=== PATIENT | female | born 1935 | race Caucasian/White ===

== ENCOUNTER 2017-08-18 14:13 | Outpatient (CLI) | payer MEDICARE | END 2017-08-18 14:14 | disposition home or self-care (01) | LOC: BICMAMMO 14:13 | PROVIDERS: ATTEND Internal Medicine Rheumatology | DX: Z13.820 Encounter for screening for osteoporosis (principal); M81.0 Age-related osteoporosis without current pathological fracture | CPT/HCPCS: 77080 ==

== ENCOUNTER 2018-02-03 18:07 | Emergency (ER) | payer MEDICARE ==
--- NOTE | 2018-02-03 19:25 | CT ---
NONCONTRAST HEAD CT: 02/03/18 HISTORY: Pain. Trip and fall. Injury. COMPARISON: None. FINDINGS: No parenchymal hemorrhage. No extra-axial hematoma. No midline shift. Basilar cisterns are patent. Ag e appropriate atrophy. Cortical abdullahi-white matter differentiation is preserved. Ventricles and sulci are patent and symmetric. Calvarium is intact. Adequate aeration of the sinuses and mastoid air cells. IMPRESSION: No intracranial posttraumatic sequela. POS: [facility]
--- NOTE | 2018-02-03 21:45 | RAD ---
LEFT KNEE FOUR VIEWS: 02/03/18 HISTORY: 82-year-old female with history of left knee pain following an injury, trip and fall. FINDINGS: Marked tricompartment degenerative and osteoarthrosis changes with marked narrowing of the lateral co mpartment as well as some prominent extraosseous calcific changes noted posteriorly possibly enthesop hytic change. Bone demineralization. IMPRESSION: Marked degenerative changes and osteoarthrosis changes without acute fracture or dislocation. POS: [facility]
== END 2018-02-03 20:20 | disposition home or self-care (01) ==
LOC: ERS 18:07
DX: S09.90XA Unspecified injury of head, initial encounter (principal); S02.2XXA Fracture of nasal bones, initial encounter for closed fracture; M91.0 Juvenile osteochondrosis of pelvis; Z79.899 Other long term (current) drug therapy; Z86.73 Personal history of transient ischemic attack (TIA), and cerebral infarction without residual deficits; Z79.82 Long term (current) use of aspirin; W01.0XXA Fall on same level from slipping, tripping and stumbling without subsequent striking against object, initial encounter
CPT/HCPCS: 70450

== ENCOUNTER 2018-03-29 06:30 | Outpatient (CLI) | payer MEDICARE ==
[2018-03-29 10:05] LABS: #Basophils 0.1 thou/uL (0.0-0.2); #Eosinphils 0.3 thou/uL (0.0-0.7); #Lymphocytes 3.5 thou/uL (1.20-3.40); #Monocytes 0.8 thou/uL (0.11-0.59); #Neutrophils 3.4 thou/uL (1.40-6.50); %Basophils 0.7 % (0.0-1.0); %Lymphocytes 43.3 % (21.0-51.0); %Monocytes 9.9 % (0.0-10.0); %Neutrophils 42.2 % (42.0-75.0); Mean Corpuscular HGB CONC 31.4 g/dL (32.0-36.0); Mean Corpuscular Hemoglobin 27.5 pg (27.0-31.0); Mean Corpuscular Volume 87.8 fL (78.0-98.0); Platelet Count 208 thou/uL (130-400); Red Blood Cell (RBC) Count 5.07 mill/uL (4.20-5.40); White Blood Cell (WBC) Count 8.1 thou/uL (4.8-10.8)
[2018-03-29 10:11] LABS: INR-International Normal Ratio 1.1
[2018-03-29 10:28] LABS: Anion Gap 11 mmol/L (10-20); BUN (Urea Nitrogen) 18 mg/dL (9.8-20.1); Calc. Creatinine Clearance 0 mL/min (70-130); Calcium 9.8 mg/dL (7.8-10.44); Carbon Dioxide 30 mmol/L (23-31); Chloride 103 mmol/L (98-107); Estimated GFR-MDRD 78; Glucose 78 mg/dL (83-110); Potassium 3.7 mmol/L (3.5-5.1); Sodium 140 mmol/L (136-145)
--- NOTE | 2018-03-29 11:00 | RAD ---
CHEST PA AND LATERAL: HISTORY: Preoperative evaluation, the patient is scheduled for a total knee replacement. COMPARISON: 03/14/2014. FINDINGS: Minimal hyperinflation and chronic lung changes. Minimal hyperinflation and chronic lung changes. E vidence for a hiatal hernia. Atherosclerosis of the aorta with ectasia. IMPRESSION: Mild stable chronic lung changes. Atherosclerosis of the aorta. Evidence for a hiatal hernia. No s ignificant acute process. Stable from prior study. POS: [facility] [place]
[2018-03-29 13:49] LABS: Bacteria/HPF None Seen HPF (None Seen); Hyaline Casts/LPF NONE SEEN LPF (0-3 Hyaline); RBC/HPF None Seen HPF (0-3); Squamous Epithelial 0-3 HPF (0-3); WBC/HPF None Seen HPF (0-3)
--- NOTE | 2018-03-30 20:56 | EKG ---
Test Reason : Blood Pressure : / mmHG Vent. Rate : 051 BPM Atrial Rate : 051 BPM P-R Int : 220 ms QRS Dur : 084 ms QT Int : 460 ms P-R-T Axes : 025 -40 067 degrees QTc Int : 423 ms Sinus bradycardia with 1st degree A-V block Left axis deviation Septal infarct (cited on or before 16-MAY-2001) Abnormal ECG When compared with ECG of 13-NOV-2008 10:58, No significant change was found Confirmed by Kori SALAZAR ([id number]) on 03/30/2018 8:56:35 PM Referred By: IJHAN Confirmed By:Kori SALAZAR
== END 2018-03-29 06:31 | disposition home or self-care (01) ==
LOC: LABBT 06:30
PROVIDERS: ATTEND Orthopaedic Surgery
DX: Z01.818 Encounter for other preprocedural examination (principal); M17.11 Unilateral primary osteoarthritis, right knee; I70.0 Atherosclerosis of aorta; K44.9 Diaphragmatic hernia without obstruction or gangrene
CPT/HCPCS: 71046; 80048; 81015; 85025; 85610; 93005; 93010

== ENCOUNTER 2018-04-10 06:16 | Day surgery (SDC) | payer MEDICARE ==
[2018-03-29 08:42] VITALS: BMI 19.3
[2018-04-10] MEDS ORDERED: Tranexamic Acid 1,000 MG/10 ML VIAL ONE ×2 (07:41→11:59)
[2018-04-10] MEDS ORDERED: Sodium Chloride 0.9% 100 ML ONE (07:42)
[2018-04-10] MEDS ORDERED: Fentanyl 100 MCG/2 ML VIAL ONE ×2 (07:45→11:01)
[2018-04-10] MEDS ORDERED: Midazolam HCl 2 mg/2 ml Vial ONE (07:45)
[2018-04-10] MEDS ORDERED: Levofloxacin 500 mg/D5W 100 ml Premix Bag ONE (08:41)
[2018-04-10] MEDS ORDERED: Zolpidem Tartrate 5 MG TAB PO PRN ×2 (08:46→08:56)
[2018-04-10] MEDS ORDERED: Ondansetron PF 4 MG/2 ML Vial IVP PRN ×2 (08:46→08:56)
[2018-04-10] MEDS ORDERED: HYDROcodone/Acetaminophen 5/325 mg Tablet PO PRN ×4 (08:46→12:34)
[2018-04-10] MEDS ORDERED: Ropivacaine HCl/PF 250 ML in Premix Bag 1 BAG NERVE BLCK SCH (08:46)
[2018-04-10] MEDS ORDERED: traMADol HCl 50 MG TAB PO PRN (08:46)
[2018-04-10] MEDS ORDERED: Promethazine HCl 25 MG/ML VIAL IM PRN ×3 (08:46→09:52)
[2018-04-10] MEDS ORDERED: Acetaminophen 325 MG TAB PO PRN (08:56)
[2018-04-10] MEDS ORDERED: diphenhydrAMINE 25 MG CAP PO PRN (08:56)
[2018-04-10] MEDS ORDERED: Non-Formulary Item 1 EACH (Acetaminophen [Tylenol] 325 MG) PO PRN (08:58)
[2018-04-10] MEDS ORDERED: Non-Formulary Item 1 EACH (Multivitamin [Multivitamins] 1 CAP) PO SCH (09:00)
[2018-04-10] MEDS ORDERED: Aspirin 81 mg Enteric Coated Tablet PO SCH (09:00)
[2018-04-10] MEDS ORDERED: Promethazine HCl 25 MG/ML VIAL SLOW IVP PRN (09:52)
[2018-04-10] MEDS ORDERED: Ondansetron HCl/PF 4 MG/2 ML Vial IVP PRN (09:52)
--- NOTE | 2018-04-10 11:40 | RAD ---
RIGHT KNEE TWO VIEWS: HISTORY: Postop. FINDINGS: Total knee prosthesis is in good position. Bones are demineralized. No fractures. IMPRESSION: Placement of total knee prosthesis. POS: [facility]
--- NOTE | 2018-04-10 12:19 | PDOC.PN ---
- Subjective Encounter Start Date: 04/10/18 Encounter Start Time: 13:28 -: old records requested/rev Patient seen and examined. No new complaints. No overnight events - Objective MAR Reviewed: Yes Vital Signs & Weight: Weight Weight 109 lb Additional Labs: old [employer] record reviewed Radiology Reviewed by me: Yes (knee xray reviewed) Phys Exam - Physical Examination Constitutional: NAD HEENT: PERRLA, moist MMs, sclera anicteric Neck: no JVD, supple Respiratory: no wheezing, no rales, no rhonchi Cardiovascular: RRR, no significant murmur, no rub Gastrointestinal: soft, non-tender, no distention, positive bowel sounds Musculoskeletal: no edema, pulses present right Knee with dressing, nerve block in place Neurological: non-focal, normal sensation, moves all 4 limbs Lymphatic: no nodes Psychiatric: normal affect, A&O x 3 Skin: no rash, normal turgor Dx/Plan (1) Status post total right knee replacement Code(s): Z96.651 - PRESENCE OF RIGHT ARTIFICIAL KNEE JOINT Status: Acute (2) Hypertension Code(s): I10 - ESSENTIAL (PRIMARY) HYPERTENSION Status: Chronic (3) Dyslipidemia Code(s): E78.5 - HYPERLIPIDEMIA, UNSPECIFIED Status: Chronic (4) Osteoarthritis Code(s): M19.90 - UNSPECIFIED OSTEOARTHRITIS, UNSPECIFIED SITE Status: Chronic - Plan cont current plan of care, plan discussed w/ family, PT/OT * continue aspirin for DVT prophylaxis * continue her home medication * PT/OT as per [facility] protocol * medication reviewed as below * symptomatic treatment * nerve block as per anesthesia * discharge per primary team * medically stable * pain controlled. * hold BP meds for SBP <120. * code status full code * Pepcid for GI prophyalxis Review of Systems - Review of Systems ENT: negative: Ear Pain, Ear Discharge, Nose Pain, Nose Discharge, Nose Congestion, Mouth Pain, Mouth Swelling, Throat Pain, Throat Swelling, Other Respiratory: negative: Cough, Dry, Shortness of Breath, Hemoptysis, SOB with Excertion, Pleuritic Pain, Sputum, Wheezing Cardiovascular: negative: chest pain, palpitations, orthopnea, paroxysmal nocturnal dyspnea, edema, light headedness, other Gastrointestinal: negative: Nausea, Vomiting, Abdominal Pain, Diarrhea, Constipation, Melena, Hematochezia, Other Genitourinary: negative: Dysuria, Frequency, Incontinence, Hematuria, Retention , Other Musculoskeletal: negative: Neck Pain, Shoulder Pain, Arm Pain, Back Pain, Hand Pain, Leg Pain, Foot Pain, Other Skin: negative: Rash, Lesions, Julio, Bruising, Other - Medications/Allergies Allergies/Adverse Reactions: Allergies Allergy/AdvReac Type Severity Reaction Status Date / Time codeine Allergy Nausea Verified 03/29/18 08:43 Penicillins Allergy Hives Verified 03/29/18 08:43 Sulfa (Sulfonamide Allergy Hives Verified 03/29/18 08:43 Antibiotics) Medications: Current Medications Acetaminophen (Tylenol) 650 mg PO Q4H PRN PRN Reason: Headache/Fever or Pain Hydrocodone Bitart/Acetaminophen ([place] 5/325) 1 tab PO Q4H PRN PRN Reason: Mild Pain (1-3) Hydrocodone Bitart/Acetaminophen ([place] 5/325) 2 tab PO Q4H PRN PRN Reason: For Moderate Pain 4-6 Albuterol/Ipratropium (Duoneb) 3 ml NEB QIDPRN PRN PRN Reason: Wheezing Amlodipine Besylate (Norvasc) 5 mg PO DAILY [facility] Aspirin (Ecotrin) 81 mg PO BID [facility] Atorvastatin Calcium (Lipitor) 20 mg PO HS [facility] Calcium/Vitamin D (Caltrate 600 + Vit D) 1 tab PO DAILY [facility] Diphenhydramine HCl (Benadryl) 25 mg PO Q6H PRN PRN Reason: Itching Fentanyl (Pacu-Sublimaze) 50 mcg SLOW IVP Q10MIN PRN PRN Reason: Moderate to Severe Pain (6-10) Stop: 04/10/18 12:52 Ferrous Gluconate (Fergon) 324 mg PO BID [facility] Hydrochlorothiazide (Hydrochlorothiazide) 25 mg PO DAILY [facility] Ropivacaine 250 ml/ Device 250 mls @ 0 mls/hr NERVE BLCK INF [facility] Sodium Chloride (Normal Saline 0.9%) 1,000 mls @ 100 mls/hr IV .Q10H [facility] Vancomycin HCl 1 gm/ Device 200 mls @ 200 mls/hr IVPB ONE [facility] Stop: 04/10/18 20:59 Iron/Minerals/Multivitamins (Theragran M) 1 tab PO DAILY [facility] Ketorolac Tromethamine (Toradol) 15 mg IVP Q6HR [facility] Stop: 04/12/18 06:01 Metoprolol Succinate (Toprol Xl) 50 mg PO DAILY [facility] Olmesartan (Benicar) 40 mg PO DAILY [facility] Ondansetron HCl (Zofran) 4 mg IVP Q6H PRN PRN Reason: Nausea/Vomiting Ondansetron HCl (Pacu-Zofran) 4 mg IVP ONE PRN PRN Reason: Nausea/Vomiting Stop: 04/10/18 12:52 Promethazine HCl (Phenergan) 12.5 mg IM Q4H PRN PRN Reason: Nausea Promethazine HCl (Pacu-Phenergan) 6.25 mg SLOW IVP ONE PRN PRN Reason: Nausea/Vomiting Stop: 04/10/18 12:52 Promethazine HCl (Pacu-Phenergan) 6.25 mg IM ONE PRN PRN Reason: Nausea/Vomiting Stop: 04/10/18 12:52 Senna/Docusate Sodium (Senokot S) 2 tab PO BID [facility] Sodium Chloride (Flush - Normal Saline) 10 ml IVF PRN PRN PRN Reason: Saline Flush Tramadol HCl (Ultram) 50 mg PO Q6H PRN PRN Reason: Mild Pain (1-3) Tramadol HCl (Ultram) 100 mg PO Q6H PRN PRN Reason: Moderate Pain 4-6 Zolpidem Tartrate (Ambien) 5 mg PO HSPRN PRN PRN Reason: Insomnia
[2018-04-10] MEDS ORDERED: Artificial Tear Sol 15 ML BOT EA EYE PRN (12:20)
[2018-04-10] MEDS ORDERED: hydrALAZINE 20 MG/ML VIAL SLOW IVP PRN (12:20)
[2018-04-10] MEDS ORDERED: Sodium Chloride 0.65% Nasal 44 ML BOT EA NARE PRN (12:20)
[2018-04-10] MEDS ORDERED: Cepastat Lozenges 1 LOZ PO PRN (12:20)
[2018-04-10] MEDS ORDERED: Loperamide HCl 2 MG CAP PO PRN (12:20)
[2018-04-10] MEDS ORDERED: Diabetic Tussin 200 MG/10 ML UDCUP PO PRN (12:20)
[2018-04-10] MEDS ORDERED: Eucerin (Mineral Oil/Petrolatum,White) 30 gm Jar TOP PRN (12:20)
[2018-04-10] MEDS: Sodium Chloride 0.9% 1,000 ML IV SCH ×2 (14:34→20:00)
[2018-04-10] MEDS: Calcium Carbonate + Vit D 1 TAB PO SCH (14:55)
[2018-04-10] MEDS: Multivitamin W/ Minerals 1 TAB PO SCH (14:56)
[2018-04-10] MEDS: Senokot S 8.6-50 MG TAB PO SCH ×2 (14:56→21:38)
[2018-04-10] MEDS: Hydrochlorothiazide 25 MG TAB PO SCH (14:56)
[2018-04-10] MEDS: Ketorolac Tromethamine 30 MG/ML VIAL IVP SCH ×3 (14:56→23:45)
[2018-04-10] MEDS: Ferrous Gluconate 324 MG TAB PO SCH ×2 (14:56→21:38)
[2018-04-10] MEDS: Amlodipine 5 MG TAB PO SCH (14:57)
[2018-04-10] MEDS: Aspirin 81 mg Enteric Coated Tablet PO SCH ×2 (14:57→21:38)
[2018-04-10] MEDS ORDERED: Ropivacaine 0.2% HCl/PF (40 MG/20 ML VIAL) ONE (15:00)
[2018-04-10] MEDS ORDERED: Ropivacaine 0.5% HCl/PF (150 MG/30 ML VIAL) ONE (15:00)
[2018-04-10] MEDS ORDERED: Ondansetron PF 4 MG/2 ML Vial ONE (15:58)
[2018-04-10] MEDS ORDERED: PROPOFOL 200 MG/20 ML VIAL ONE (15:58)
[2018-04-10] MEDS ORDERED: Lidocaine 1% PF 5 ML VIAL ONE (15:58)
[2018-04-10] MEDS ORDERED: ePHEDrine/0.9% NaCl/PF SYRINGE 50 mg/10 ml ONE (15:58)
[2018-04-10] MEDS ORDERED: Vancomycin HCl 1 GM in Premix Bag 1 BAG IVPB SCH (20:00)
[2018-04-10] MEDS: Atorvastatin Calcium 20 MG TAB PO SCH (21:39)
[2018-04-10] MEDS: traMADol HCl 50 MG TAB PO PRN (21:45)
[2018-04-11] MEDS: Sodium Chloride 0.9% 1,000 ML IV SCH ×3 (04:20→22:33)
[2018-04-11] MEDS: Ketorolac Tromethamine 30 MG/ML VIAL IVP SCH ×5 (05:25→23:54)
[2018-04-11 06:23] LABS: Hemoglobin 11.1 g/dL (12.0-16.0); Mean Corpuscular HGB CONC 32.8 g/dL (32.0-36.0); Mean Corpuscular Hemoglobin 28.6 pg (27.0-31.0); Mean Corpuscular Volume 87.3 fL (78.0-98.0); Mean Platelet Volume 8.8 fL (7.4-10.4); Platelet Count 150 thou/uL (130-400); RBC Distribution Width 12.7 % (11.5-14.5); Red Blood Cell (RBC) Count 3.87 mill/uL (4.20-5.40); White Blood Cell (WBC) Count 10.8 thou/uL (4.8-10.8)
[2018-04-11] MEDS: Ferrous Gluconate 324 MG TAB PO SCH ×2 (07:55→20:17)
[2018-04-11] MEDS: Aspirin 81 mg Enteric Coated Tablet PO SCH ×2 (07:55→20:18)
[2018-04-11] MEDS: Multivitamin W/ Minerals 1 TAB PO SCH (07:55)
[2018-04-11] MEDS: traMADol HCl 50 MG TAB PO PRN (07:57)
--- NOTE | 2018-04-11 10:44 | PDOC.PN ---
- Subjective Encounter Start Date: 04/11/18 Encounter Start Time: 07:45 Patient seen and examined. No new complaints. No overnight events - Objective Resuscitation Status - Order Detail: 04/10/18 12:20 Resuscitation Status Routine Resuscitation Status: FULL: Full Resuscitation MAR Reviewed: Yes Vital Signs & Weight: Vital Signs (12 hours) Temp Pulse Resp BP Pulse Ox 04/11/18 07:39 98.2 F 60 18 157/76 H 95 04/11/18 04:46 98.5 F 68 18 125/68 94 L 04/11/18 00:30 99.2 F 75 17 127/69 95 Weight Weight 109 lb I&O: 04/10/18 04/11/18 04/12/18 06:59 06:59 06:59 Intake Total 3301.0 Output Total 2600 1500 Balance 701.0 -1500 Result Diagrams: 04/11/18 05:50 Phys Exam - Physical Examination Constitutional: NAD HEENT: PERRLA, moist MMs, sclera anicteric Neck: no JVD, supple Respiratory: no wheezing, no rales, no rhonchi Cardiovascular: RRR, no significant murmur, no rub Gastrointestinal: soft, non-tender, no distention, positive bowel sounds Musculoskeletal: no edema, pulses present Neurological: non-focal, normal sensation, moves all 4 limbs Psychiatric: normal affect, A&O x 3 Skin: no rash, normal turgor Dx/Plan (1) Status post total right knee replacement Code(s): Z96.651 - PRESENCE OF RIGHT ARTIFICIAL KNEE JOINT Status: Acute (2) Hypertension Code(s): I10 - ESSENTIAL (PRIMARY) HYPERTENSION Status: Chronic (3) Dyslipidemia Code(s): E78.5 - HYPERLIPIDEMIA, UNSPECIFIED Status: Chronic (4) Osteoarthritis Code(s): M19.90 - UNSPECIFIED OSTEOARTHRITIS, UNSPECIFIED SITE Status: Chronic - Plan cont current plan of care, plan discussed w/ family, PT/OT * medication reviewed as below * symptomatic treatment * medically stable * doing well * continue PT * pain controlled * discussed with family * nerve block as per anesthesia. Review of Systems - Review of Systems ENT: negative: Ear Pain, Ear Discharge, Nose Pain, Nose Discharge, Nose Congestion, Mouth Pain, Mouth Swelling, Throat Pain, Throat Swelling, Other Respiratory: negative: Cough, Dry, Shortness of Breath, Hemoptysis, SOB with Excertion, Pleuritic Pain, Sputum, Wheezing Cardiovascular: negative: chest pain, palpitations, orthopnea, paroxysmal nocturnal dyspnea, edema, light headedness, other Gastrointestinal: negative: Nausea, Vomiting, Abdominal Pain, Diarrhea, Constipation, Melena, Hematochezia, Other Genitourinary: negative: Dysuria, Frequency, Incontinence, Hematuria, Retention , Other Musculoskeletal: negative: Neck Pain, Shoulder Pain, Arm Pain, Back Pain, Hand Pain, Leg Pain, Foot Pain, Other Skin: negative: Rash, Lesions, Jluio, Bruising, Other - Medications/Allergies Allergies/Adverse Reactions: Allergies Allergy/AdvReac Type Severity Reaction Status Date / Time codeine Allergy Nausea Verified 03/29/18 08:43 Penicillins Allergy Hives Verified 03/29/18 08:43 Sulfa (Sulfonamide Allergy Hives Verified 03/29/18 08:43 Antibiotics) Medications: Current Medications Acetaminophen (Tylenol) 650 mg PO Q4H PRN PRN Reason: Headache/Fever or Pain Hydrocodone Bitart/Acetaminophen ([place] 5/325) 1 tab PO Q4H PRN PRN Reason: Mild Pain (1-3) Hydrocodone Bitart/Acetaminophen ([place] 5/325) 2 tab PO Q4H PRN PRN Reason: Moderate Pain (4-6) Albuterol/Ipratropium (Duoneb) 3 ml NEB QIDPRN PRN PRN Reason: Wheezing Amlodipine Besylate (Norvasc) 5 mg PO DAILY [facility] Last Admin: 04/10/18 14:57 Dose: Not Given Artificial Tears (Tears Renewed 15ml Bottle) 2 drop EA EYE PRN PRN PRN Reason: Dry Eyes Aspirin (Ecotrin) 81 mg PO BID [facility] Last Admin: 04/11/18 07:55 Dose: 81 mg Atorvastatin Calcium (Lipitor) 20 mg PO HS [facility] Last Admin: 04/10/18 21:39 Dose: 20 mg Calcium/Vitamin D (Caltrate 600 + Vit D) 1 tab PO DAILY [facility] Last Admin: 04/10/18 14:55 Dose: Not Given Diphenhydramine HCl (Benadryl) 25 mg PO Q6H PRN PRN Reason: Itching Famotidine (Pepcid) 20 mg PO DAILY [facility] Ferrous Gluconate (Fergon) 324 mg PO BID [facility] Last Admin: 04/11/18 07:55 Dose: 324 mg Guaifenesin (Robitussin Sf) 200 mg PO Q4H PRN PRN Reason: Cough Hydralazine HCl (Apresoline) 10 mg SLOW IVP Q4H PRN PRN Reason: SBP > 180 and HR < 70 Hydrochlorothiazide (Hydrochlorothiazide) 25 mg PO DAILY [facility] Last Admin: 04/10/18 14:56 Dose: Not Given Ropivacaine 250 ml/ Device 250 mls @ 0 mls/hr NERVE BLCK INF [facility] Last Admin: 04/11/18 09:43 Dose: 250 mls Sodium Chloride (Normal Saline 0.9%) 1,000 mls @ 100 mls/hr IV .Q10H [facility] Last Admin: 04/11/18 04:20 Dose: Not Given Iron/Minerals/Multivitamins (Theragran M) 1 tab PO DAILY [facility] Last Admin: 04/11/18 07:55 Dose: 1 tab Ketorolac Tromethamine (Toradol) 15 mg IVP Q6HR [facility] Stop: 04/12/18 06:01 Last Admin: 04/11/18 05:25 Dose: 15 mg Loperamide HCl (Imodium) 2 mg PO PRN PRN PRN Reason: Diarrhea/Loose Stools Metoprolol Succinate (Toprol Xl) 50 mg PO DAILY [facility] Last Admin: 04/11/18 07:55 Dose: 50 mg Mineral Oil/White Petrolatum (Eucerin Cream) 0 gm TOP BIDPRN PRN PRN Reason: Dry Skin Olmesartan (Benicar) 40 mg PO DAILY [facility] Last Admin: 04/10/18 14:57 Dose: Not Given Ondansetron HCl (Zofran) 4 mg IVP Q6H PRN PRN Reason: Nausea/Vomiting Last Admin: 04/11/18 09:38 Dose: 4 mg Promethazine HCl (Phenergan) 12.5 mg IM Q4H PRN PRN Reason: Nausea Senna/Docusate Sodium (Senokot S) 2 tab PO BID [facility] Last Admin: 04/10/18 21:38 Dose: 2 tab Sodium Chloride (Flush - Normal Saline) 10 ml IVF PRN PRN PRN Reason: Saline Flush Sodium Chloride ([place] Nasal [place] 0.65%) 0 ml EA NARE QIDPRN PRN PRN Reason: Nasal Congestion Throat Lozenges (Cepastat Lozenges) 1 juliana PO Q2H PRN PRN Reason: Sore Throat Tramadol HCl (Ultram) 50 mg PO Q6H PRN PRN Reason: Mild Pain (1-3) Tramadol HCl (Ultram) 100 mg PO Q6H PRN PRN Reason: Moderate Pain 4-6 Last Admin: 04/11/18 07:57 Dose: 100 mg Zolpidem Tartrate (Ambien) 5 mg PO HSPRN PRN PRN Reason: Insomnia
[2018-04-11] MEDS: Famotidine 20 MG TAB PO SCH ×2 (14:28→14:29)
[2018-04-11] MEDS: Senokot S 8.6-50 MG TAB PO SCH ×2 (14:28→20:18)
[2018-04-11] MEDS: Hydrochlorothiazide 25 MG TAB PO SCH (14:29)
[2018-04-11] MEDS: Amlodipine 5 MG TAB PO SCH (14:29)
[2018-04-11] MEDS: Calcium Carbonate + Vit D 1 TAB PO SCH (14:30)
[2018-04-11] MEDS ORDERED: Ondansetron PF 4 MG/2 ML Vial IVP SCH (14:30)
[2018-04-11] MEDS: Acetaminophen 1,000 MG in Premix Bag 1 BAG IVPB SCH ×3 (15:51→23:56)
[2018-04-11] MEDS: Atorvastatin Calcium 20 MG TAB PO SCH (20:18)
[2018-04-12] MEDS: Ketorolac Tromethamine 30 MG/ML VIAL IVP SCH (04:46)
[2018-04-12 06:50] LABS: Hemoglobin 11.1 g/dL (12.0-16.0); Mean Corpuscular HGB CONC 33.3 g/dL (32.0-36.0); Mean Corpuscular Hemoglobin 29.1 pg (27.0-31.0); Mean Corpuscular Volume 87.2 fL (78.0-98.0); Mean Platelet Volume 9.3 fL (7.4-10.4); Platelet Count 151 thou/uL (130-400); RBC Distribution Width 12.8 % (11.5-14.5); Red Blood Cell (RBC) Count 3.81 mill/uL (4.20-5.40); White Blood Cell (WBC) Count 10.2 thou/uL (4.8-10.8)
[2018-04-12] MEDS: Famotidine 20 MG TAB PO SCH (08:59)
[2018-04-12] MEDS: Multivitamin W/ Minerals 1 TAB PO SCH (09:00)
[2018-04-12] MEDS: Hydrochlorothiazide 25 MG TAB PO SCH (09:00)
[2018-04-12] MEDS: Senokot S 8.6-50 MG TAB PO SCH ×2 (09:01→20:53)
[2018-04-12] MEDS: Acetaminophen 1,000 MG in Premix Bag 1 BAG IVPB SCH (09:02)
[2018-04-12] MEDS: Amlodipine 5 MG TAB PO SCH (09:02)
[2018-04-12] MEDS: Calcium Carbonate + Vit D 1 TAB PO SCH (09:03)
[2018-04-12] MEDS: Aspirin 81 mg Enteric Coated Tablet PO SCH ×2 (09:03→20:52)
[2018-04-12] MEDS: Ferrous Gluconate 324 MG TAB PO SCH ×2 (09:03→20:53)
--- NOTE | 2018-04-12 10:54 | PDOC.PN ---
- Subjective Encounter Start Date: 04/12/18 Encounter Start Time: 08:00 -: old records requested/rev Patient seen and examined. No new complaints. No overnight events - Objective Resuscitation Status - Order Detail: 04/10/18 12:20 Resuscitation Status Routine Resuscitation Status: FULL: Full Resuscitation MAR Reviewed: Yes Vital Signs & Weight: Vital Signs (12 hours) Temp Pulse Resp BP BP Pulse Ox 04/12/18 09:02 74 130/73 04/12/18 07:43 98.4 F 74 18 130/73 94 L 04/12/18 04:33 98.3 F 66 19 134/68 96 04/12/18 00:20 98 F 67 18 139/73 94 L 04/12/18 00:00 93 L Weight Admit Weight 109 lb Weight 109 lb I&O: 04/11/18 04/12/18 04/13/18 06:59 06:59 06:59 Intake Total 3301.0 570 Output Total 2600 1800 Balance 701.0 -1230 Result Diagrams: 04/12/18 06:22 Phys Exam - Physical Examination Constitutional: NAD HEENT: PERRLA, moist MMs, sclera anicteric Neck: no JVD, supple Respiratory: no wheezing, no rales, no rhonchi Cardiovascular: RRR, no significant murmur, no rub Gastrointestinal: soft, non-tender, no distention, positive bowel sounds Musculoskeletal: no edema, pulses present Neurological: non-focal, normal sensation, moves all 4 limbs Lymphatic: no nodes Psychiatric: normal affect, A&O x 3 Skin: no rash, normal turgor Dx/Plan (1) Status post total right knee replacement Code(s): Z96.651 - PRESENCE OF RIGHT ARTIFICIAL KNEE JOINT Status: Acute (2) Hypertension Code(s): I10 - ESSENTIAL (PRIMARY) HYPERTENSION Status: Chronic (3) Dyslipidemia Code(s): E78.5 - HYPERLIPIDEMIA, UNSPECIFIED Status: Chronic (4) Osteoarthritis Code(s): M19.90 - UNSPECIFIED OSTEOARTHRITIS, UNSPECIFIED SITE Status: Chronic - Plan cont current plan of care, plan discussed w/ family, PT/OT * medication reviewed as below * symptomatic treatment * medically stable * stable for discharge * doing well. Review of Systems - Review of Systems ENT: negative: Ear Pain, Ear Discharge, Nose Pain, Nose Discharge, Nose Congestion, Mouth Pain, Mouth Swelling, Throat Pain, Throat Swelling, Other Respiratory: negative: Cough, Dry, Shortness of Breath, Hemoptysis, SOB with Excertion, Pleuritic Pain, Sputum, Wheezing Cardiovascular: negative: chest pain, palpitations, orthopnea, paroxysmal nocturnal dyspnea, edema, light headedness, other Gastrointestinal: negative: Nausea, Vomiting, Abdominal Pain, Diarrhea, Constipation, Melena, Hematochezia, Other Genitourinary: negative: Dysuria, Frequency, Incontinence, Hematuria, Retention , Other Musculoskeletal: negative: Neck Pain, Shoulder Pain, Arm Pain, Back Pain, Hand Pain, Leg Pain, Foot Pain, Other Skin: negative: Rash, Lesions, Julio, Bruising, Other - Medications/Allergies Allergies/Adverse Reactions: Allergies Allergy/AdvReac Type Severity Reaction Status Date / Time codeine Allergy Nausea Verified 03/29/18 08:43 Penicillins Allergy Hives Verified 03/29/18 08:43 Sulfa (Sulfonamide Allergy Hives Verified 03/29/18 08:43 Antibiotics) Medications: Current Medications Acetaminophen (Tylenol) 650 mg PO Q4H PRN PRN Reason: Headache/Fever or Pain Albuterol/Ipratropium (Duoneb) 3 ml NEB QIDPRN PRN PRN Reason: Wheezing Amlodipine Besylate (Norvasc) 5 mg PO DAILY [facility] Last Admin: 04/12/18 09:02 Dose: 5 mg Artificial Tears (Tears Renewed 15ml Bottle) 2 drop EA EYE PRN PRN PRN Reason: Dry Eyes Aspirin (Ecotrin) 81 mg PO BID [facility] Last Admin: 04/12/18 09:03 Dose: 81 mg Atorvastatin Calcium (Lipitor) 20 mg PO HS [facility] Last Admin: 04/11/18 20:18 Dose: 20 mg Calcium/Vitamin D (Caltrate 600 + Vit D) 1 tab PO DAILY [facility] Last Admin: 04/12/18 09:03 Dose: 1 tab Diphenhydramine HCl (Benadryl) 25 mg PO Q6H PRN PRN Reason: Itching Famotidine (Pepcid) 20 mg PO DAILY [facility] Last Admin: 04/12/18 08:59 Dose: 20 mg Ferrous Gluconate (Fergon) 324 mg PO BID [facility] Last Admin: 04/12/18 09:03 Dose: Not Given Guaifenesin (Robitussin Sf) 200 mg PO Q4H PRN PRN Reason: Cough Hydralazine HCl (Apresoline) 10 mg SLOW IVP Q4H PRN PRN Reason: SBP > 180 and HR < 70 Hydrochlorothiazide (Hydrochlorothiazide) 25 mg PO DAILY [facility] Last Admin: 04/12/18 09:00 Dose: 25 mg Ropivacaine 250 ml/ Device 250 mls @ 0 mls/hr NERVE BLCK INF [facility] Last Admin: 04/11/18 09:43 Dose: 250 mls Sodium Chloride (Normal Saline 0.9%) 1,000 mls @ 100 mls/hr IV .Q10H [facility] Last Admin: 04/11/18 22:33 Dose: Not Given Iron/Minerals/Multivitamins (Theragran M) 1 tab PO DAILY [facility] Last Admin: 04/12/18 09:00 Dose: Not Given Ketorolac Tromethamine (Toradol) 10 mg PO Q6HR [facility] Stop: 04/17/18 12:01 Loperamide HCl (Imodium) 2 mg PO PRN PRN PRN Reason: Diarrhea/Loose Stools Metoprolol Succinate (Toprol Xl) 50 mg PO DAILY [facility] Last Admin: 04/12/18 09:00 Dose: 50 mg Mineral Oil/White Petrolatum (Eucerin Cream) 0 gm TOP BIDPRN PRN PRN Reason: Dry Skin Olmesartan (Benicar) 40 mg PO DAILY [facility] Last Admin: 04/12/18 09:00 Dose: 40 mg Ondansetron HCl (Zofran) 4 mg IVP Q6H PRN PRN Reason: Nausea/Vomiting Last Admin: 04/11/18 09:38 Dose: 4 mg Promethazine HCl (Phenergan) 12.5 mg IM Q4H PRN PRN Reason: Nausea Senna/Docusate Sodium (Senokot S) 2 tab PO BID [facility] Last Admin: 04/12/18 09:01 Dose: Not Given Sodium Chloride (Flush - Normal Saline) 10 ml IVF PRN PRN PRN Reason: Saline Flush Sodium Chloride ([place] Nasal [place] 0.65%) 0 ml EA NARE QIDPRN PRN PRN Reason: Nasal Congestion Throat Lozenges (Cepastat Lozenges) 1 juliana PO Q2H PRN PRN Reason: Sore Throat Tramadol HCl (Ultram) 50 mg PO Q6H PRN PRN Reason: Mild Pain (1-3) Tramadol HCl (Ultram) 100 mg PO Q6H PRN PRN Reason: Moderate Pain 4-6 Last Admin: 04/11/18 07:57 Dose: 100 mg Zolpidem Tartrate (Ambien) 5 mg PO HSPRN PRN PRN Reason: Insomnia
--- NOTE | 2018-04-12 12:00 | DIS ---
DATE OF ADMISSION: 04/10/2018 DATE OF DISCHARGE: 04/12/2018 PRIMARY CARE PHYSICIAN: Ramonita Lees MD. DISCHARGE DISPOSITION: Rehab. PRIMARY DISCHARGE DIAGNOSIS: Status post right total knee replacement. SECONDARY DISCHARGE DIAGNOSES: 1. Hypertension. 2. Dyslipidemia. 3. Osteoarthritis. PRIMARY PROCEDURE/OPERATION: Right total knee replacement by Dr. Drake. RADIOLOGICAL INVESTIGATION: Knee x-ray. SIGNIFICANT LABORATORY DATA: WBC 10.2, hemoglobin 11.1, platelet 151. DISCHARGE MEDICATIONS: 1. Aspirin 81 mg p.o. b.i.d. for DVT prophylaxis. 2. Amlodipine 5 mg p.o. daily. 3. Tylenol 650 mg q.6 hourly p.r.n. for pain. 4. Lipitor 20 mg p.o. at bedtime. 5. Calcium with vitamin D 1 tablet p.o. daily. 6. DuoNeb q.6 hourly p.r.n. 7. Toprol-XL 50 mg daily. 8. Multivitamin one tablet p.o. daily. 9. Aleve 220 mg p.o. b.i.d. p.r.n. 10. Benicar with hydrochlorothiazide 1 tablet p.o. daily. CONTRAINDICATION: None. CODE STATUS: Full code. INPATIENT PIANO MOVER: Dr. Drake was primary. [facility] Team was consulted for medical co-management. TEST RESULT PENDING ON DISCHARGE: None. ALLERGIES: CODEINE, PENICILLIN, SULFA DRUGS. DISCHARGE PLAN: Posthospital, the patient will follow up with primary care physician in 1 week. The patient will make appointment with Dr. Drake on April 30, 2018 at 10:15 a.m. HOSPITAL COURSE: An 82-year-old female who was electively admitted by Dr. Drake for right total knee replacement, which was done on April 10, 2018 without any complication. Postoperatively, [facility] Team was consulted for medical comanagement. The patient's all medical problems remained stable. While in hospital, we continued her home medication. She had aspirin for DVT prophylaxis and nerve block for pain control as per Anesthesia. She did well with [facility] [place] protocol treatment. The patient is planned for discharge by primary team. The patient is seen and examined at bedside today. Please see my progress note from today for further detail. Job ID: [id number]
[2018-04-12] MEDS: Ketorolac Tromethamine 10 MG TAB PO SCH ×3 (13:35→23:42)
[2018-04-12] MEDS: Acetaminophen 500 MG TAB PO PRN ×2 (13:36→18:03)
[2018-04-12] MEDS: Sodium Chloride 0.9% 1,000 ML IV SCH ×3 (16:54→21:35)
[2018-04-12] MEDS: Atorvastatin Calcium 20 MG TAB PO SCH (20:52)
[2018-04-13] MEDS: Ketorolac Tromethamine 10 MG TAB PO SCH ×2 (06:46→12:11)
[2018-04-13] MEDS: Acetaminophen 500 MG TAB PO PRN ×2 (06:48→12:11)
[2018-04-13] MEDS: Calcium Carbonate + Vit D 1 TAB PO SCH (08:24)
[2018-04-13] MEDS: Aspirin 81 mg Enteric Coated Tablet PO SCH (08:26)
[2018-04-13] MEDS: Famotidine 20 MG TAB PO SCH (08:26)
[2018-04-13] MEDS: Ferrous Gluconate 324 MG TAB PO SCH (08:26)
[2018-04-13] MEDS: Multivitamin W/ Minerals 1 TAB PO SCH (08:29)
[2018-04-13] MEDS: Senokot S 8.6-50 MG TAB PO SCH (08:30)
[2018-04-13] MEDS: Hydrochlorothiazide 25 MG TAB PO SCH (12:13)
[2018-04-13] MEDS: Amlodipine 5 MG TAB PO SCH (12:13)
[2018-04-13 16:17] VITALS: BP 133/74; TEMP 97.8
--- NOTE | 2018-04-16 09:51 | OP ---
DATE OF PROCEDURE: 04/10/2018 PREOPERATIVE DIAGNOSIS: Right knee degenerative joint disease. POSTOPERATIVE DIAGNOSIS: Right knee degenerative joint disease. ANESTHESIA: General. BLOOD LOSS: Minimal. SPECIMEN: None. DRAINS: None. COMPLICATIONS: None. IMPLANTS USED: Micki triathlon 4 femur, 4 tibia, 9 mm CS X3 polyethylene, and a 29 patella. PROCEDURE IN DETAIL: After informed consent was obtained in the preoperative holding area, the patient was taken to the operative suite where general anesthesia was induced. Once adequate level of general anesthesia was obtained, the patient was positioned and a well-padded tourniquet was placed around the right proximal thigh. The right lower extremity was then prepped and draped in the usual sterile fashion. Prior to exsanguination, a time-out was called and all members of the surgical team agreed upon site, surgeon, and patient. The extremity was then exsanguinated and the tourniquet was raised. A midline longitudinal incision was then made directly over the patella extending 2 fingerbreadths above the superior pole of the patella and 2 fingerbreadths inferior to the inferior patellar pole of the patella. Deeper subcutaneous layers were dissected sharply and local bleeding was controlled with Bovie electrocautery. A quad tendon longitudinal split was then made sharply and a median parapatellar arthrotomy was carried out both sharp and with Bovie electrocautery, carried down to 1 fingerbreadth medial to the tibial tubercle. The knee was then placed into flexion and the patella was everted nicely, and a copious fat pad ectomy was performed allowing for greater exposure of the tibia. The computer-assisted distal femoral fiducial was then placed and pinned firmly, and the distal femoral cutting guide was pinned firmly into place. The oscillating saw was then used to remove the appropriate amount of bone. The 4-in-1 cutting block was then placed on the distal femur and the oscillating saw was used to remove the appropriate amount of bone off the anterior, posterior, and chamfer cuts. After completion of bone cuts, the anterior cruciate ligament was resected sharply and the posterior cruciate ligament retractor was placed and the tibia was subluxed for better exposure. Partial meniscectomies were carried out, and the tibial computer-assisted fiducial was pinned, and the cutting guide was placed. Oscillating saw was then used to remove the bone, with Hohmann retractors used to take care and protect the collateral ligaments. After the tibial resection was performed, a laminar physical therapy manager was placed in between the freshened bone cuts. The knee placed at 90 degrees and further bilateral meniscectomies were carried out, and the curved osteotome and curettage were used to remove any excess bone spurs in the posterior compartment. The trial femoral component, tibial baseplate were placed with the appropriate polyethylene trial insert with an appropriate polyethylene spacer and patellar button. The knee was taken through full range of motion with flexion and extension from 0 to 90 degrees and patellar broach squarely in the trochlea without any squinting or subluxation noted. The knee was also stable to varus and valgus stressing at 0, 15, 45, and 90 degrees of flexion. The drawer was negative. All trial components were then removed and the keel punch was used to provide the appropriate defect in the tibia with a mallet. The freshened bone cuts were copiously irrigated with pulsatile lavage of about 1.5 L to remove all excess debris. The freshened bone cuts were then dried with suction and lap sponge. The knee was placed in flexion and retractors were placed to provide access to all bone cuts. Tobramycin-impregnated methyl methacrylate cement was then placed on the freshened bone cuts and implants which were malleted firmly into place. Curettage and Justice elevators were used to remove any excess bone cement. The knee was placed into full extension and the patellar button was placed under compression, and the cement was allowed to cure. Once completed, the components were again taken through full range of motion and copious irrigation of the knee was carried out with another liter of normal saline. All components were inspected fully with full range of motion and varus and valgus stressing. There was no laxity noted and full extension was observed clinically. Primary closure was accomplished with #2 interrupted Vicryl stitch of the arthrotomy defect. This was oversewn with a #2 running Quill barbed stitch. The gravitational platelet system was then injected into the arthrotomy prior to closure. The subcutaneous layer was then closed with a running 0 barbed Monocryl stitch and skin closure accomplished with a running subcuticular 3-0 Monocryl barbed Quill stitch and augmented with cement on the skin. Tourniquet was lowered. Good spontaneous return of distal pulses was noted clinically and a sterile dressing was applied to the incision. The procedure was terminated without any complications. The patient was awakened in the operative suite and the patient was taken to the recovery room in stable condition. Job ID: [id number]
== END 2018-04-13 16:15 | disposition home or self-care (01) ==
LOC: SDC 06:16 → SURG B 11:00 → SDC 04-13 16:15
PROVIDERS: ATTEND Orthopaedic Surgery
PROC: 0SRC0J9 Replacement of Right Knee Joint with Synthetic Substitute, Cemented, Open Approach (ICD-10-PCS; principal; 2018-04-10)
PROC: 8E0YXBZ Computer Assisted Procedure of Lower Extremity (ICD-10-PCS; 2018-04-10)
DX: M17.11 Unilateral primary osteoarthritis, right knee (principal); I10 Essential (primary) hypertension; E78.5 Hyperlipidemia, unspecified; M19.90 Unspecified osteoarthritis, unspecified site; Z79.82 Long term (current) use of aspirin; Z79.899 Other long term (current) drug therapy; Z88.0 Allergy status to penicillin; Z88.2 Allergy status to sulfonamides; Z88.5 Allergy status to narcotic agent
CPT/HCPCS: 20985; 27447; 73560; 85027; 97110 ×2; 97116 ×4; 97139 ×3; 97150 ×2; 97530 ×4; 98961; C1713; C1776; 36415; J0131; J1885; J1956; J2001; J2250; J2405; J2704; J2795; J3010; J3370; J7050

== ENCOUNTER 2018-08-22 10:15 | Outpatient (CLI) | payer MEDICARE ==
--- NOTE | 2018-08-22 10:45 | BD ---
DEXA BONE SCAN: HISTORY: Age-related osteoporosis. Comparison made to previous exam from 07/27/2015. DEXA bone scan is performed using Hologic bone mineral density unit. FINDINGS: BMD (g/cm2) Lumbar Spine: L1 0.750 T-Score: -2.2 Z-Score: 0.3 L2 0.750 T-Score: -2.6 Z-Score: 0.2 L3 0.660 T-Score: -3.9 Z-Score: -1.0 L4 0.720 T-Score: -3.1 Z-Score: -0.2 L1-L4 0.720 T-Score: -3.0 Z-Score: -0.2 Findings compatible with osteoporosis. Left Hip: Femoral Neck: 0.500 T-Score: -3.1 Z-Score: -0.7 Total Femur: 0.520 T-Score: -3.5 Z-Score: -1.2 Findings compatible with osteoporosis. IMPRESSION: Osteoporosis. Bone mineral density is stable, but continues to be significantly reduced. Findings com patible with osteoporosis and increased risk of osteoporotic fractures. Transcribed Date/Time: 08/22/2018 11:13 AM
== END 2018-08-22 10:16 | disposition home or self-care (01) ==
LOC: BICMAMMO 10:15
PROVIDERS: ATTEND Internal Medicine Rheumatology
DX: M81.0 Age-related osteoporosis without current pathological fracture (principal)
CPT/HCPCS: 77080

== ENCOUNTER 2018-11-13 07:24 | Day surgery (SDC) | payer MEDICARE ==
[2018-11-06 13:22] VITALS: BMI 18.1
[2018-11-13] MEDS ORDERED: Fentanyl 100 MCG/2 ML VIAL ONE (07:40)
[2018-11-13] MEDS ORDERED: Midazolam HCl 2 mg/2 ml Vial ONE (07:40)
[2018-11-13] MEDS ORDERED: Sodium Chloride 0.9% 100 ML ONE (07:44)
[2018-11-13] MEDS ORDERED: Tranexamic Acid 1,000 MG/10 ML VIAL ONE (07:44)
[2018-11-13] MEDS ORDERED: Levofloxacin 500 mg/D5W 100 ml Premix Bag ONE (08:21)
[2018-11-13] MEDS ORDERED: Promethazine HCl 25 MG/ML VIAL IM PRN ×3 (08:39→09:42)
[2018-11-13] MEDS ORDERED: Zolpidem Tartrate 5 MG TAB PO PRN ×2 (08:39→08:48)
[2018-11-13] MEDS ORDERED: Ondansetron PF 4 MG/2 ML Vial IVP PRN ×2 (08:39→08:48)
[2018-11-13] MEDS ORDERED: Acetaminophen 325 MG TAB PO PRN (08:39)
[2018-11-13] MEDS ORDERED: diphenhydrAMINE 25 MG CAP PO PRN (08:39)
[2018-11-13] MEDS ORDERED: Fentanyl 100 MCG/2 ML VIAL SLOW IVP PRN ×2 (08:39)
[2018-11-13] MEDS ORDERED: HYDROcodone/Acetaminophen 10/325 mg Tablet PO PRN ×4 (08:39→08:48)
[2018-11-13] MEDS ORDERED: HYDROcodone/Acetaminophen 5/325 mg Tablet PO PRN ×2 (08:48)
[2018-11-13] MEDS ORDERED: Ropivacaine HCl/PF 250 ML in Premix Bag 1 BAG NERVE BLCK SCH (08:48)
[2018-11-13] MEDS ORDERED: traMADol HCl 50 MG TAB PO PRN ×2 (08:48)
[2018-11-13] MEDS ORDERED: Fentanyl 100 MCG/2 ML VIAL IV PRN (08:49)
[2018-11-13] MEDS ORDERED: Acetaminophen 500 MG TAB PO PRN (08:51)
[2018-11-13] MEDS ORDERED: Ondansetron HCl/PF 4 MG/2 ML Vial IVP PRN (09:42)
[2018-11-13] MEDS ORDERED: Promethazine HCl 25 MG/ML VIAL SLOW IVP PRN (09:42)
[2018-11-13] MEDS ORDERED: Ondansetron PF 4 MG/2 ML Vial ONE ×2 (10:50→17:40)
--- NOTE | 2018-11-13 11:21 | OP ---
DATE OF PROCEDURE: 11/13/2018 PREOPERATIVE DIAGNOSIS: Degenerative joint disease, left knee. POSTOPERATIVE DIAGNOSIS: Degenerative joint disease, left knee. PROCEDURE PERFORMED: Left total knee arthroplasty using Micki Triathlon 4 femur, 4 tibia, 9 mm CS X3 polyethylene, A29 patella. DIRECTOR OF INSTRUCTION: Bonifacio Carson PA-C ESTIMATED BLOOD LOSS: Minimal. SPECIMENS: None. DRAINS: None. COMPLICATIONS: None. TOURNIQUET TIME: 49 minutes. PROCEDURE IN DETAIL: After informed consent was obtained in the preoperative holding area, the patient was taken to the operative suite where general anesthesia was induced. Once adequate level of general anesthesia was obtained, the patient was positioned and a well-padded tourniquet was placed around the left proximal thigh. The left lower extremity was then prepped and draped in the usual sterile fashion. Prior to exsanguination, a time-out was called and all members of the surgical team agreed upon site, surgeon, and patient. The extremity was then exsanguinated and the tourniquet was raised. A midline longitudinal incision was then made directly over the patella extending 2 fingerbreadths above the superior pole of the patella and 2 fingerbreadths inferior to the inferior patellar pole of the patella. Deeper subcutaneous layers were dissected sharply and local bleeding was controlled with Bovie electrocautery. A quad tendon longitudinal split was then made sharply and a median parapatellar arthrotomy was carried out both sharp and with Bovie electrocautery, carried down to 1 fingerbreadth medial to the tibial tubercle. The knee was then placed into flexion and the patella was everted nicely, and a copious fat pad ectomy was performed allowing for greater exposure of the tibia. The computer-assisted distal femoral fiducial was then placed and pinned firmly, and the distal femoral cutting guide was pinned firmly into place. The oscillating saw was then used to remove the appropriate amount of bone. The 4-in-1 cutting block was then placed on the distal femur and the oscillating saw was used to remove the appropriate amount of bone off the anterior, posterior, and chamfer cuts. After completion of bone cuts, the anterior cruciate ligament was resected sharply and the posterior cruciate ligament retractor was placed and the tibia was subluxed for better exposure. Partial meniscectomies were carried out, and the tibial computer-assisted fiducial was pinned, and the cutting guide was placed. Oscillating saw was then used to remove the bone, with Hohmann retractors used to take care and protect the collateral ligaments. After the tibial resection was performed, a laminar graining operator was placed in between the freshened bone cuts. The knee placed at 90 degrees and further bilateral meniscectomies were carried out, and the curved osteotome and curettage were used to remove any excess bone spurs in the posterior compartment. The trial femoral component, tibial baseplate were placed with the appropriate polyethylene trial insert with an appropriate polyethylene spacer and patellar button. The knee was taken through full range of motion with flexion and extension from 0 to 90 degrees and patellar broach squarely in the trochlea without any squinting or subluxation noted. The knee was also stable to varus and valgus stressing at 0, 15, 45, and 90 degrees of flexion. The drawer was negative. All trial components were then removed and the keel punch was used to provide the appropriate defect in the tibia with a mallet. The freshened bone cuts were copiously irrigated with pulsatile lavage of about 1.5 L to remove all excess debris. The freshened bone cuts were then dried with suction and lap sponge. The knee was placed in flexion and retractors were placed to provide access to all bone cuts. Tobramycin-impregnated methyl methacrylate cement was then placed on the freshened bone cuts and implants which were malleted firmly into place. Curettage and [place] elevators were used to remove any excess bone cement. The knee was placed into full extension and the patellar button was placed under compression, and the cement was allowed to cure. Once completed, the components were again taken through full range of motion and copious irrigation of the knee was carried out with another liter of normal saline. All components were inspected fully with full range of motion and varus and valgus stressing. There was no laxity noted and full extension was observed clinically. Primary closure was accomplished with #2 interrupted Vicryl stitch of the arthrotomy defect. This was oversewn with a #2 running Quill barbed stitch. The gravitational platelet system was then injected into the arthrotomy prior to closure. The subcutaneous layer was then closed with a running 0 barbed Monocryl stitch and skin closure accomplished with a running subcuticular 3-0 Monocryl barbed Quill stitch and augmented with cement on the skin. Tourniquet was lowered. Good spontaneous return of distal pulses was noted clinically and a sterile dressing was applied to the incision. The procedure was terminated without any complications. The patient was awakened in the operative suite, and the patient was taken to the recovery room in stable condition. Job ID: [id number]
--- NOTE | 2018-11-13 13:14 | RAD ---
PORTABLE LEFT KNEE 2 VIEWS: HISTORY: Total knee arthroplasty. FINDINGS/IMPRESSION: There are recent postop changes of total knee arthroplasty in good position and alignment. Soft tiss ue air is present. POS: H
[2018-11-13] MEDS: Sodium Chloride 0.9% 1,000 ML IV SCH ×3 (15:08→23:10)
[2018-11-13] MEDS: Ketorolac Tromethamine 30 MG/ML VIAL IVP SCH ×2 (15:12→16:37)
[2018-11-13] MEDS: Multivitamin W/ Minerals 1 TAB PO SCH (15:12)
[2018-11-13] MEDS ORDERED: Ropivacaine 0.2% HCl/PF (40 MG/20 ML VIAL) ONE (17:28)
[2018-11-13] MEDS ORDERED: Ropivacaine 0.5% HCl/PF (150 MG/30 ML VIAL) ONE (17:28)
[2018-11-13] MEDS ORDERED: PROPOFOL 200 MG/20 ML VIAL ONE (17:40)
[2018-11-13] MEDS ORDERED: Lidocaine 1% PF 5 ML VIAL ONE (17:40)
[2018-11-13] MEDS ORDERED: PHENYLEPHRINE-NS 100 MCG/ML 10 ML SYRINGE ONE (17:40)
[2018-11-13] MEDS ORDERED: hydrALAZINE 20 MG/ML VIAL SLOW IVP PRN (19:22)
[2018-11-13] MEDS ORDERED: Mag-Al 1200 mg/1200 mg/30 ML UDCUP PO PRN (19:22)
--- NOTE | 2018-11-13 19:25 | PDOC.HOSPP ---
- Subjective Encounter Date: 11/13/18 Encounter Time: 19:00 Subjective: Patient seen and examined for med mngt. Pain controlled. Some nausea earlier. No new complaints. - Objective Vital Signs & Weight: Vital Signs (12 hours) Temp Pulse Resp BP BP BP BP 11/13/18 19:19 97.6 F 80 16 178/91 H 11/13/18 15:00 169/76 H 98/46 L 143/59 H 11/13/18 14:05 99.5 F 69 16 169/76 H Pulse Ox 11/13/18 19:19 93 L 11/13/18 15:00 11/13/18 14:05 95 Weight Weight 106 lb I&O: 11/12/18 11/13/18 11/14/18 06:59 06:59 06:59 Intake Total 1100 Output Total 1800 Balance -700 Additional Labs: Laboratory Tests 12/26/12 11/06/18 11/06/18 12:53 14:00 14:00 Hgb 14.2 BUN 30 H Est GFR (Non-Af Amer) 65 Creatinine 0.83 EKG Reviewed by me: Yes (SR) Hospitalist ROS - Review of Systems Cardiovascular: denies: chest pain, palpitations, orthopnea, paroxysmal noc. dyspnea, edema, light headedness, other Gastrointestinal: denies: nausea, vomitting, abdominal pain, diarrhea, constipation, melena, hematochezia, other - Medication Medications: Active Medications Generic Name Dose Route Start Last Admin Trade Name Freq PRN Reason Stop Dose Admin Sodium Chloride 1,000 mls @ 100 mls/hr 11/13/18 08:45 11/13/18 16:38 Normal Saline 0.9% IV 1,000 mls .Q10H DONNIE Administration Iron/Minerals/Multivitamins 1 tab 11/13/18 09:00 11/13/18 15:12 Theragran M PO Not Given DAILY DONNIE Ketorolac Tromethamine 15 mg 11/13/18 12:00 11/13/18 16:37 Toradol IVP 11/15/18 06:01 15 mg Q6HR DONNIE Administration Metoprolol Succinate 50 mg 11/13/18 09:00 11/13/18 15:11 Toprol Xl PO Not Given DAILY DONNIE Ondansetron HCl 4 mg 11/13/18 08:39 11/13/18 15:31 Zofran IVP 4 mg Q6H PRN Administration Nausea/Vomiting - Exam General Appearance: NAD Heart: RRR, no rubs Respiratory: CTAB, no wheezes, no ronchi Gastrointestinal: soft, non-tender, normal bowel sounds Extremities: no edema Neurological: no new deficit Hosp A/P (1) HLD (hyperlipidemia) Code(s): E78.5 - HYPERLIPIDEMIA, UNSPECIFIED Status: Chronic (2) Moderate aortic regurgitation Code(s): I35.1 - NONRHEUMATIC AORTIC (VALVE) INSUFFICIENCY Status: Chronic (3) Moderate mitral regurgitation Code(s): I34.0 - NONRHEUMATIC MITRAL (VALVE) INSUFFICIENCY Status: Chronic (4) CKD (chronic kidney disease) stage 2, GFR 60-89 ml/min Code(s): N18.2 - CHRONIC KIDNEY DISEASE, STAGE 2 (MILD) Status: Chronic (5) Hypertension Code(s): I10 - ESSENTIAL (PRIMARY) HYPERTENSION Status: Chronic (6) Osteoarthritis Code(s): M19.90 - UNSPECIFIED OSTEOARTHRITIS, UNSPECIFIED SITE Status: Chronic - Plan plan discussed w/ family, PT/OT, DVT proph w/SCDs Cont Toprol XL Cont Amlodidpine Hold Losartan/HCTZ for SBP <130 Add PRN meds Full code. DPOA - family
[2018-11-13] MEDS ORDERED: Vancomycin HCl 1 GM in Premix Bag 1 BAG IVPB SCH (20:00)
[2018-11-13] MEDS ORDERED: Aspirin 81 mg Enteric Coated Tablet PO SCH (21:00)
[2018-11-13] MEDS ORDERED: Ferrous Gluconate 324 MG TAB PO SCH (21:00)
[2018-11-13] MEDS: Aspirin 81 mg Enteric Coated Tablet PO SCH (21:13)
[2018-11-13] MEDS: Atorvastatin Calcium 20 MG TAB PO SCH (21:13)
[2018-11-13] MEDS: Senokot S 8.6-50 MG TAB PO SCH (21:13)
[2018-11-14] MEDS: Ketorolac Tromethamine 30 MG/ML VIAL IVP SCH ×5 (00:53→23:46)
[2018-11-14 05:27] LABS: Mean Corpuscular HGB CONC 33.2 g/dL (32.0-36.0); Mean Corpuscular Hemoglobin 28.6 pg (27.0-31.0); Mean Platelet Volume 9.6 fL (7.4-10.4); Platelet Count 153 thou/uL (130-400); RBC Distribution Width 12.8 % (11.5-14.5); Red Blood Cell (RBC) Count 4.54 mill/uL (4.20-5.40); White Blood Cell (WBC) Count 11.4 thou/uL (4.8-10.8)
[2018-11-14] MEDS ORDERED: Acetaminophen 650 MG in Premix Bag 1 BAG IVPB PRN (08:24)
[2018-11-14] MEDS ORDERED: Losartan 25 MG TAB PO SCH (09:00)
[2018-11-14] MEDS ORDERED: Hydrochlorothiazide 25 MG TAB PO SCH ×2 (09:00)
[2018-11-14] MEDS ORDERED: Amlodipine 5 MG TAB PO SCH (09:00)
[2018-11-14] MEDS ORDERED: Fentanyl 100 MCG/2 ML VIAL SLOW IVP PRN (09:34)
[2018-11-14] MEDS ORDERED: Fentanyl 100 MCG/2 ML VIAL SLOW IVP SCH (10:00)
[2018-11-14] MEDS: Multivitamin W/ Minerals 1 TAB PO SCH (10:15)
[2018-11-14] MEDS: Acetaminophen 1,000 MG in Premix Bag 1 BAG IVPB SCH ×3 (10:19→22:17)
[2018-11-14] MEDS: Multivit, Therapeutic 1 TAB PO SCH (10:24)
[2018-11-14] MEDS: Calcium Carbonate + Vit D 1 TAB PO SCH (10:24)
[2018-11-14] MEDS: Losartan 25 MG TAB PO SCH (10:25)
[2018-11-14] MEDS: Aspirin 81 mg Enteric Coated Tablet PO SCH ×2 (10:26→20:59)
[2018-11-14] MEDS: Senokot S 8.6-50 MG TAB PO SCH ×2 (10:42→20:59)
[2018-11-14] MEDS: Amlodipine 5 MG TAB PO SCH (12:29)
[2018-11-14] MEDS: Sodium Chloride 0.9% 1,000 ML IV SCH (14:26)
--- NOTE | 2018-11-14 15:01 | PDOC.HOSPP ---
- Subjective Encounter Date: 11/14/18 Encounter Time: 08:00 Subjective: Patient seen and examined for med mngt. Pain controlled. Nausea +. No other complaints. No overnight events - Objective Vital Signs & Weight: Vital Signs (12 hours) Temp Pulse Pulse Resp BP BP BP 11/14/18 14:54 97.3 F L 58 L 16 11/14/18 12:27 97.8 F 76 16 11/14/18 09:52 77 144/84 H 166/84 H 166/75 H 11/14/18 08:05 98.1 F 69 14 11/14/18 03:29 97.4 F L 74 16 BP BP Pulse Ox 11/14/18 14:54 153/70 H 93 L 11/14/18 12:27 135/74 95 11/14/18 09:52 11/14/18 08:05 143/76 H 93 L 11/14/18 03:29 159/77 H 94 L Weight Admit Weight 106 lb Weight 106 lb I&O: 11/13/18 11/14/18 11/15/18 06:59 06:59 06:59 Intake Total 1100 Output Total 4200 350 Balance -3100 -350 Result Diagrams: 11/14/18 04:32 Hospitalist ROS - Review of Systems Respiratory: denies: cough, dry, shortness of breath, hemoptysis, SOB with excertion, pleuritic pain, sputum, wheezing, other Cardiovascular: denies: chest pain, palpitations, orthopnea, paroxysmal noc. dyspnea, edema, light headedness, other - Medication Medications: Active Medications Generic Name Dose Route Start Last Admin Trade Name Monika PRN Reason Stop Dose Admin Amlodipine Besylate 5 mg 11/14/18 12:00 11/14/18 12:29 Norvasc PO 5 mg 1200 DONNIE Administration Aspirin 81 mg 11/13/18 21:00 11/14/18 10:26 Ecotrin PO 81 mg BID DONNIE Administration Atorvastatin Calcium 20 mg 11/13/18 21:00 11/13/18 21:13 Lipitor PO 20 mg HS DONNIE Administration Calcium/Vitamin D 1 tab 11/14/18 09:00 11/14/18 10:24 Caltrate 600 + Vit D PO Not Given DAILY DONNIE Ferrous Gluconate 324 mg 11/13/18 21:00 11/13/18 21:13 Fergon PO 324 mg BID DONNIE Administration Sodium Chloride 1,000 mls @ 100 mls/hr 11/13/18 08:45 11/14/18 14:26 Normal Saline 0.9% IV Not Given .Q10H DONNIE Ropivacaine 250 ml/ Device 250 mls @ 10 mls/hr 11/13/18 08:48 11/14/18 12:30 NERVE BLCK 250 mls INF DONNIE Administration As Directed Acetaminophen 1,000 mg/ Device 100 mls @ 400 mls/hr 11/14/18 10:00 11/14/18 10:19 IVPB 11/15/18 04:14 100 mls 0400,1000,1600,2200 DONNIE Administration Iron/Minerals/Multivitamins 1 tab 11/13/18 09:00 11/14/18 10:15 Theragran M PO Not Given DAILY DONNIE Ketorolac Tromethamine 15 mg 11/13/18 12:00 11/14/18 12:29 Toradol IVP 11/15/18 06:01 15 mg Q6HR DONNIE Administration Losartan Potassium 50 mg 11/14/18 09:00 11/14/18 10:25 Cozaar PO 50 mg DAILY DONNIE Administration Metoprolol Succinate 50 mg 11/14/18 12:00 11/14/18 12:29 Toprol Xl PO 50 mg 1200 DONNIE Administration Multivitamins 1 tab 11/14/18 09:00 11/14/18 10:24 Theragran PO Not Given DAILY DONNIE Ondansetron HCl 4 mg 11/13/18 08:48 11/14/18 10:17 Zofran IVP 4 mg Q6H PRN Administration Nausea/Vomiting - Exam General Appearance: NAD Heart: RRR, no gallops, no rubs Respiratory: CTAB, no wheezes, no ronchi Gastrointestinal: soft, non-tender, normal bowel sounds Extremities: no edema Hosp A/P (1) HLD (hyperlipidemia) Code(s): E78.5 - HYPERLIPIDEMIA, UNSPECIFIED Status: Chronic (2) Moderate aortic regurgitation Code(s): I35.1 - NONRHEUMATIC AORTIC (VALVE) INSUFFICIENCY Status: Chronic (3) Moderate mitral regurgitation Code(s): I34.0 - NONRHEUMATIC MITRAL (VALVE) INSUFFICIENCY Status: Chronic (4) CKD (chronic kidney disease) stage 2, GFR 60-89 ml/min Code(s): N18.2 - CHRONIC KIDNEY DISEASE, STAGE 2 (MILD) Status: Chronic (5) Hypertension Code(s): I10 - ESSENTIAL (PRIMARY) HYPERTENSION Status: Chronic (6) Osteoarthritis Code(s): M19.90 - UNSPECIFIED OSTEOARTHRITIS, UNSPECIFIED SITE Status: Chronic - Plan Cont Toprol XL/Amlodidpine Cont Losartan Hold HCTZ Change Sen-S to 1 tab PO BID DC PO iron per patient req
[2018-11-14] MEDS: Naproxen 500 MG TAB PO SCH (17:21)
[2018-11-14] MEDS: Atorvastatin Calcium 20 MG TAB PO SCH (20:59)
[2018-11-15] MEDS: Sodium Chloride 0.9% 1,000 ML IV SCH ×2 (00:52→10:13)
[2018-11-15] MEDS: Acetaminophen 1,000 MG in Premix Bag 1 BAG IVPB SCH (04:15)
[2018-11-15 05:11] LABS: Hemoglobin 11.3 g/dL (12.0-16.0); Mean Corpuscular HGB CONC 34.2 g/dL (32.0-36.0); Mean Corpuscular Volume 87.8 fL (78.0-98.0); Mean Platelet Volume 9.8 fL (7.4-10.4); Platelet Count 144 thou/uL (130-400); RBC Distribution Width 12.8 % (11.5-14.5); Red Blood Cell (RBC) Count 3.75 mill/uL (4.20-5.40)
[2018-11-15] MEDS: Naproxen 500 MG TAB PO SCH (05:52)
[2018-11-15] MEDS: Ketorolac Tromethamine 30 MG/ML VIAL IVP SCH (05:54)
[2018-11-15] MEDS: Aspirin 81 mg Enteric Coated Tablet PO SCH (10:09)
[2018-11-15] MEDS: Calcium Carbonate + Vit D 1 TAB PO SCH (10:10)
[2018-11-15] MEDS: Losartan 25 MG TAB PO SCH (10:10)
[2018-11-15] MEDS: Multivitamin W/ Minerals 1 TAB PO SCH (10:11)
[2018-11-15] MEDS: Multivit, Therapeutic 1 TAB PO SCH (10:13)
[2018-11-15] MEDS: Senokot S 8.6-50 MG TAB PO SCH (10:13)
[2018-11-15] MEDS ORDERED: Acetaminophen 500 MG TAB PO SCH (12:00)
[2018-11-15 12:35] VITALS: BP 147/70; TEMP 97.3
[2018-11-15] MEDS: Amlodipine 5 MG TAB PO SCH (12:39)
--- NOTE | 2018-11-16 05:23 | DIS ---
DATE OF ADMISSION: 11/13/2018 DATE OF DISCHARGE: 11/15/2018 This is Bonifacio Carson PA-C dictating a report for Gareth Drake MD. PREOPERATIVE DIAGNOSIS: Left knee osteoarthritis/degenerative joint disease. POSTOPERATIVE DIAGNOSIS: Left knee osteoarthritis/degenerative joint disease. PROCEDURE PERFORMED: The patient underwent a left total knee replacement. HOSPITAL COURSE: Hospital stay was unremarkable. She was admitted to [address] where she worked with staff, Physical Therapy, Occupational Therapy, and progressed quite well. By postop day 2, she was ready to discharge home. DISCHARGE CONDITION: Good/stable. DISPOSITION: Home with family. FOLLOWUP: Follow up would be in 2 to 4 weeks, sooner if there are problems and/or concerns. DISCHARGE MEDICATIONS: Given with usage instructions. Job ID: [id number]
== END 2018-11-15 14:04 | disposition home or self-care (01) ==
LOC: SDC 07:24 → SURG A 08:39 → SDC 11-15 14:04
PROVIDERS: ATTEND Orthopaedic Surgery
PROC: 0SRD06Z Replacement of Left Knee Joint with Oxidized Zirconium on Polyethylene Synthetic Substitute, Open Approach (ICD-10-PCS; principal; 2018-11-13)
DX: M17.12 Unilateral primary osteoarthritis, left knee (principal); I10 Essential (primary) hypertension; E78.00 Pure hypercholesterolemia, unspecified; M81.0 Age-related osteoporosis without current pathological fracture; Z79.82 Long term (current) use of aspirin; Z79.899 Other long term (current) drug therapy; Z88.0 Allergy status to penicillin; Z88.2 Allergy status to sulfonamides; Z88.5 Allergy status to narcotic agent
CPT/HCPCS: 27447; 73560; 85027; 97110; 97116 ×2; 97139; 97150 ×2; 97530 ×2; 98962; C1713; C1776; 36415; J0131; J0690; J1885; J1956; J2001; J2250; J2405; J2704; J2795; J3010; J3370; J3490

== ENCOUNTER 2019-08-26 07:52 | Outpatient (CLI) | payer MEDICARE ==
--- NOTE | 2019-08-26 09:19 | BD ---
BONE DENSITOMETRY USING DEXA: HISTORY: Osteoporosis. FINDINGS: Lumbar Spine: BMD (g/cm2) L1 0.772 T-Score: -2.0 Z-Score: 0.5 L2 0.724 T-Score: -2.8 Z-Score: 0.0 L3 0.674 T-Score: -2.7 Z-Score: 0.8 L4 0.716 T-Score: -3.1 Z-Score: -0.1 L1-L4 0.720 T-Score: -3.0 Z-Score: -0.1 Femoral Neck: 0.507 T-Score: -3.1 Z-Score: 0.6 Total Femur: 0.600 T-Score: -3.6 Z-Score: -1.3 There has been interval improvement of 0.6% in the BMD of the lumbar spine and a reduction of 3.3% in the BMD of the proximal femur since 08/22/2018. Impression: Osteoporosis. POS: TOM
== END 2019-08-26 07:53 | disposition home or self-care (01) ==
LOC: BICMAMMO 07:52
PROVIDERS: ATTEND Internal Medicine Rheumatology
DX: M81.0 Age-related osteoporosis without current pathological fracture (principal)
CPT/HCPCS: 36415; 77080; 80053; 80061

== ENCOUNTER 2020-06-22 14:50 | Emergency (ER) | payer MEDICARE | END 2020-06-22 17:08 | disposition home or self-care (01) | LOC: ERS 14:50 | DX: M25.551 Pain in right hip (principal); I10 Essential (primary) hypertension; M19.90 Unspecified osteoarthritis, unspecified site; Z79.82 Long term (current) use of aspirin; Z79.899 Other long term (current) drug therapy; W18.30XA Fall on same level, unspecified, initial encounter ==

== ENCOUNTER 2020-11-02 12:33 | Outpatient (CLI) | payer MEDICARE ==
[2020-11-02 14:16] LABS: #Basophils 0.1 10x3/uL (0.0-0.2); #Eosinphils 0.2 10x3/uL (0.0-0.5); #Monocytes 0.7 10x3/uL (0.0-1.1); #Neutrophils 3.7 10x3/uL (1.5-8.4); %Basophils 1.4 % (0.0-2.0); %Eosinophils 3.1 % (0.0-6.0); %Lymphocytes 26.7 % (18.0-47.0); %Monocytes 10.1 % (0.0-10.0); %Neutrophils 58.2 % (40.0-75.0); Hemoglobin 13.9 g/dL (12.0-15.5); Mean Corpuscular Hemoglobin 27.9 pg (27.0-33.0); Mean Corpuscular Volume 87.2 fl (81.6-98.3); Mean Platelet Volume 12.1 fl (7.4-10.4); Platelet Count 191 10x3/uL (150-450); RBC Distribution Width 14.2 % (11.5-14.5); Red Blood Cell (RBC) Count 4.99 10x6/uL (3.90-5.03); White Blood Cell (WBC) Count 6.4 10x3/uL (3.5-10.5)
[2020-11-02 14:17] LABS: Anion Gap 14 mmol/L (10-20); BUN (Urea Nitrogen) 24 mg/dL (9.8-20.1); Calc. Creatinine Clearance 0 mL/min (70-130); Calcium 10.9 mg/dL (7.8-10.44); Carbon Dioxide 32 mmol/L (23-31); Chloride 100 mmol/L (98-107); Glucose 100 mg/dL (83-110); Potassium 3.8 mmol/L (3.5-5.1); Sodium 142 mmol/L (136-145)
[2020-11-03 07:42] LABS: SARS-CoV-2 PCR by NAA Not Detected (NotDetected)
== END 2020-11-02 12:34 | disposition home or self-care (01) ==
LOC: LABBT 12:33
PROVIDERS: ATTEND Specialist
DX: Z01.818 Encounter for other preprocedural examination (principal); K40.90 Unilateral inguinal hernia, without obstruction or gangrene, not specified as recurrent; Z20.822 Contact with and (suspected) exposure to COVID-19
CPT/HCPCS: 80048; 85025; 93005; U0003; U0005; 93010

== ENCOUNTER 2020-11-04 06:10 | Day surgery (SDC) | payer MEDICARE ==
[2020-11-03 15:35] VITALS: BMI 19.2
[2020-11-04] MEDS ORDERED: Levofloxacin 500 mg/D5W 100 ml Premix Bag ONE (06:25)
[2020-11-04] MEDS ORDERED: Acetaminophen 500 MG TAB ONE (06:26)
[2020-11-04] MEDS ORDERED: Ketorolac Tromethamine 30 MG/ML VIAL ONE (06:26)
[2020-11-04] MEDS ORDERED: Bupivacaine 0.25% HCL 30 ML VIAL ONE (06:54)
[2020-11-04] MEDS ORDERED: Lidocaine 1% w/Epinephrine 1:100K 20 ML VIAL ONE (06:54)
[2020-11-04] MEDS ORDERED: Fentanyl 100 MCG/2 ML VIAL ONE (07:06)
[2020-11-04] MEDS ORDERED: Phenylephrine 10 MG/ML VIAL ONE (07:07)
[2020-11-04] MEDS ORDERED: PHENYLEPHRINE-NS 100 MCG/ML 10 ML SYRINGE ONE (07:35)
[2020-11-04] MEDS ORDERED: Ondansetron PF 4 MG/2 ML Vial ONE (07:35)
[2020-11-04] MEDS ORDERED: Lidocaine 1% PF 5 ML VIAL ONE (07:35)
[2020-11-04] MEDS ORDERED: Glycopyrrolate 0.2 MG/ML 5 ML SYRINGE ONE (07:35)
[2020-11-04] MEDS ORDERED: Rocuronium Bromide 10 MG/ML (10ML VIAL) ONE (07:35)
[2020-11-04] MEDS ORDERED: Dexamethasone 20 MG/5 ML VIAL ONE (07:35)
[2020-11-04] MEDS ORDERED: PROPOFOL 200 MG/20 ML VIAL ONE (07:35)
[2020-11-04] MEDS ORDERED: SUGAMMADEX SODIUM 200 MG/2 ML VIAL ONE (08:29)
== END 2020-11-04 11:15 | disposition home or self-care (01) ==
LOC: SDC 06:10
PROVIDERS: ATTEND Specialist
PROC: 0YU54JZ Supplement Right Inguinal Region with Synthetic Substitute, Percutaneous Endoscopic Approach (ICD-10-PCS; principal; 2020-11-04)
DX: K40.90 Unilateral inguinal hernia, without obstruction or gangrene, not specified as recurrent (principal); Z79.82 Long term (current) use of aspirin; Z79.899 Other long term (current) drug therapy; Z88.0 Allergy status to penicillin; Z88.2 Allergy status to sulfonamides; Z88.5 Allergy status to narcotic agent
CPT/HCPCS: C1781; J1100; J1885; J1956; J2370; J2405; J2704; J3010; S0020

== ENCOUNTER 2021-02-09 14:16 | Outpatient (CLI) | payer MEDICARE | END 2021-02-09 14:17 | disposition home or self-care (01) | LOC: BICMAMMO 14:16 | PROVIDERS: ATTEND Internal Medicine Rheumatology | DX: M81.0 Age-related osteoporosis without current pathological fracture (principal) | CPT/HCPCS: 77080 ==

== ENCOUNTER 2021-09-01 09:50 | Outpatient (CLI) | payer MEDICARE | END 2021-09-01 09:51 | disposition home or self-care (01) | LOC: BICMAMMO 09:50 | PROVIDERS: ATTEND Family Medicine | DX: M81.0 Age-related osteoporosis without current pathological fracture (principal) | CPT/HCPCS: 77080 ==

== ENCOUNTER 2021-09-04 20:36 | Emergency (ER) | payer MEDICARE ==
[2021-09-04 21:17] LABS: #Basophils 0.1 thou/uL (0.0-0.2); #Eosinphils 0.3 thou/uL (0.0-0.7); #Monocytes 0.6 thou/uL (0.11-0.59); #Neutrophils 4.2 thou/uL (1.40-6.50); %Eosinophils 3.7 % (0.0-10.0); %Lymphocytes 27.9 % (21.0-51.0); %Monocytes 7.9 % (0.0-10.0); %Neutrophils 59.5 % (42.0-75.0); Hemoglobin 14.9 g/dL (12.0-16.0); Mean Corpuscular HGB CONC 32.8 g/dL (32.0-36.0); Mean Corpuscular Hemoglobin 29.7 pg (27.0-31.0); Mean Corpuscular Volume 90.4 fL (78.0-98.0); Mean Platelet Volume 9.2 fL (7.4-10.4); Platelet Count 183 thou/uL (130-400); RBC Distribution Width 12.8 % (11.5-14.5); Red Blood Cell (RBC) Count 5.02 mill/uL (4.20-5.40)
[2021-09-04 21:39] LABS: ALT (SGPT) 20 U/L (8-55); AST (SGOT) 34 U/L (5-34); Albumin 4.2 g/dL (3.4-4.8); Alkaline Phosphatase 81 U/L (40-110); Anion Gap 15 mmol/L (10-20); BUN (Urea Nitrogen) 20 mg/dL (9.8-20.1); Bilirubin, Total 0.9 mg/dL (0.2-1.2); Calc. Creatinine Clearance 0 mL/min (70-130); Calcium 9.4 mg/dL (7.8-10.44); Carbon Dioxide 27 mmol/L (23-31); Chloride 102 mmol/L (98-107); Globulin 2.8 g/dL (2.4-3.5); Glucose 142 mg/dL (83-110); Potassium 3.5 mmol/L (3.5-5.1); Sodium 140 mmol/L (136-145)
[2021-09-04 22:09] LABS: CK (CPK) 130 U/L (29-168); Lipase 50 U/L (8-78)
== END 2021-09-04 23:32 | disposition home or self-care (01) ==
LOC: ERS 20:36
DX: T67.5XXA Heat exhaustion, unspecified, initial encounter (principal); E86.0 Dehydration; I10 Essential (primary) hypertension
CPT/HCPCS: 36415; 80053; 82550; 83690; 83880; 84484; 85025; 93005

== ENCOUNTER 2023-09-22 07:46 | Outpatient (CLI) | payer MEDICARE | END 2023-09-22 07:47 | disposition home or self-care (01) | LOC: BICMAMMO 07:46 | PROVIDERS: ATTEND Family Medicine | DX: M81.0 Age-related osteoporosis without current pathological fracture (principal) | CPT/HCPCS: 77080 ==